=== PATIENT | female | born 1990 | race Caucasian/White ===

== ENCOUNTER 2019-10-15 17:13 | Emergency (ER) | payer BC ==
[~2019-10-15] VITALS: Ht 160 cm; Wt 69.9 kg
[2019-10-15 17:13] VITALS: BP_SYST 113
--- NOTE | 2019-10-15 17:13 | NUR ---
BIB w/c from OB, placed in bed 5
--- NOTE | 2019-10-15 17:18 | NUR ---
ER Dr. Concepcion at bedside examining patient.
--- NOTE | 2019-10-15 17:25 | NUR ---
patient bib spouse cc of right lower abdominal pain radiating to back. 8/10 scale sharp, pain started 3 pm. stated "I have hx of kidney stone".pt crying, spouse at the bedside.vital sign stable, afebrile. will monitor.
[2019-10-15] MEDS ORDERED: MORPHINE 4 MG/ML INJ. SYRINGE IVP ONE (17:30)
[2019-10-15] MEDS ORDERED: DIPHENHYDRAMINE INJ 50 MG/ML VIAL IVP ONE (17:30)
[2019-10-15 17:31] LABS: BILIRUBIN,URINE NEGATIVE (NEGATIVE); BLOOD, URINE 2+ (NEGATIVE); COLOR,URINE YELLOW (YELLOW); GLUCOSE,URINE NEGATIVE (NEGATIVE); KETONES,URINE TRACE (NEGATIVE); LEUKOCYTE ESTERASE ,URINE NEGATIVE (NEGATIVE); NITRITE, URINE NEGATIVE (NEGATIVE); PROTEIN URINE NEGATIVE (NEGATIVE); UROBILINOGEN,URINE 0.2 (0.2-1.0)
[2019-10-15 17:41] LABS: BACTERIA,URINE FEW /HPF (None Seen); CLARITY/URINE HAZY (CLEAR); RBC,URINE 0-3 /HPF (0-3); WBC,URINE 0-3 /HPF (0-3)
[2019-10-15 17:42] LABS: MUCUS,URINE None Seen /LPF (None Seen)
[2019-10-15 17:52] LABS: BASOPHILS # (AUTO) 0.1 K/uL (0.0-0.2); BASOPHILS % (AUTO) 0.7 % (0.0-2.0); EOSINOPHILS % (AUTO) 0.5 % (0.0-4.0); HEMATOCRIT 32.3 % (36-48); HEMOGLOBIN 11.3 g/dL (12.0-16.0); LYMPHOCYTES # (AUTO) 1.8 K/uL (1.0-5.5); LYMPHOCYTES % (AUTO) 20.6 % (20.5-51.5); MEAN CORPUSCULAR HEMOGLOBIN 31 pg (27-31); MEAN CORPUSCULAR HGB CONC 35 % (32-36); MEAN CORPUSCULAR VOLUME 88 fL (79.0-98.0); MONOCYTES # (AUTO) 0.5 K/uL (0.0-1.0); MONOCYTES % (AUTO) 6.4 % (1.7-9.3); NEUTROPHILS # (AUTO) 6.1 K/uL (1.8-7.7); NEUTROPHILS % (AUTO) 71.8 % (40.0-70.0); PLATELET COUNT (AUTO) 221 K/uL (130-430); RED BLOOD CELL COUNT(AUTO) 3.68 MIL/uL (4.2-6.2); RED CELL DISTRIBUTION WIDTH 13.8 % (9.0-15.0); WHITE BLOOD COUNT (AUTO) 8.6 K/uL (4.8-10.8)
[2019-10-15 18:00] LABS: CALCIUM 9.2 mg/dL (8.4-11.0); CREATININE 0.48 mg/dL (0.55-1.30); POTASSIUM 4.3 mmol/L (3.5-5.1)
[2019-10-15] MEDS ORDERED: ONDANSETRON HCL 4 MG/2 ML VIAL IVP ONE (18:00)
[2019-10-15 18:04] LABS: INR 0.9 (0.8-1.2); PROTHROMBIN TIME 9.3 SECS (9.5-12.5)
[2019-10-15 18:05] LABS: TOTAL BILIRUBIN 0.2 mg/dL (0.0-1.0)
[2019-10-15] MEDS ORDERED: KETOROLAC TROMETHAMINE 30 MG VIAL IVP ONE (18:45)
[2019-10-15 19:31] VITALS: BP_SYST 114
--- NOTE | 2019-10-15 19:31 | NUR ---
Patient given written and verbal discharge instructions and verbalizes understanding. ER MD discussed with patient the results and treatment provided. Patient in stable condition. ID arm band removed. IV catheter removed intact and dressing applied, no active bleeding. No rx given. Patient educated on pain management and to follow up with PMD. Pain Scale 0/10 Opportunity for questions provided and answered. Medication side effect fact sheet provided.
== END 2019-10-15 19:31 | disposition home or self-care (01) ==
LOC: SED 17:13
DX: O26.832 Pregnancy related renal disease, second trimester (principal); O99.282 Endocrine, nutritional and metabolic diseases complicating pregnancy, second trimester; E07.9 Disorder of thyroid, unspecified; N20.0 Calculus of kidney; Z3A.22 22 weeks gestation of pregnancy
CPT/HCPCS: 36415; 80053; 81000; 83605; 83690; 85025; 85610; 87040; 93005; 96374; 96375; 99284; J1200; J1885; J2270; J2405

== ENCOUNTER 2019-10-16 19:44 | Emergency (ER) | payer BC ==
[~2019-10-16] VITALS: Ht 160 cm; Wt 69.9 kg
[2019-10-16 20:00] VITALS: BP_SYST 109
--- NOTE | 2019-10-16 20:12 | NUR ---
Pt ambulatory to bed 1 for evaluation
--- NOTE | 2019-10-16 20:13 | NUR ---
Patient is ambulatory and complains of left side of flank pain since yesterday. Patient has been taking Tylenol the whole day and she started feeling more pain. Pt complains of N/V. Patient was seen here yesterday for same problem. No other injuries/complaints per patient or noted.
--- NOTE | 2019-10-16 20:15 | NUR ---
ER at bedside examining patient.
[2019-10-16] MEDS ORDERED: NACL 0.9% 1,000 ML IV ONE (20:21)
[2019-10-16] MEDS ORDERED: MORPHINE 2 MG/ML INJ. SYRINGE IVP ONE ×2 (20:30→22:00)
[2019-10-16] MEDS ORDERED: METOCLOPRAMIDE HCL 10 MG/2 ML VIAL IVP ONE (20:30)
[2019-10-16 20:51] LABS: BASOPHILS # (AUTO) 0.1 K/uL (0.0-0.2); BASOPHILS % (AUTO) 0.7 % (0.0-2.0); EOSINOPHILS # (AUTO) 0.1 K/uL (0.0-0.4); EOSINOPHILS % (AUTO) 0.8 % (0.0-4.0); HEMATOCRIT 30.6 % (36-48); HEMOGLOBIN 10.7 g/dL (12.0-16.0); LYMPHOCYTES # (AUTO) 1.8 K/uL (1.0-5.5); LYMPHOCYTES % (AUTO) 18.6 % (20.5-51.5); MEAN CORPUSCULAR HEMOGLOBIN 31 pg (27-31); MEAN CORPUSCULAR HGB CONC 35 % (32-36); MEAN CORPUSCULAR VOLUME 88 fL (79.0-98.0); MONOCYTES # (AUTO) 0.5 K/uL (0.0-1.0); MONOCYTES % (AUTO) 5.4 % (1.7-9.3); NEUTROPHILS % (AUTO) 74.5 % (40.0-70.0); PLATELET COUNT (AUTO) 230 K/uL (130-430); RED BLOOD CELL COUNT(AUTO) 3.47 MIL/uL (4.2-6.2); RED CELL DISTRIBUTION WIDTH 13.6 % (9.0-15.0); WHITE BLOOD COUNT (AUTO) 9.5 K/uL (4.8-10.8)
--- NOTE | 2019-10-16 20:58 | NUR ---
Asked Dr. Lyman about administering morphine and reglan to patient. Per Dr. Lyman, patient has been taking Tylenol all day and has no relief for abdominal pain. Per Dr. Lyman "reglan is okay to give during ." Dr. Lyman spoke with patient in regards to medications, pt verbalized understanding.
[2019-10-16 21:16] LABS: BILIRUBIN,URINE NEGATIVE (NEGATIVE); BLOOD, URINE 2+ (NEGATIVE); CLARITY/URINE CLEAR (CLEAR); COLOR,URINE YELLOW (YELLOW); GLUCOSE,URINE NEGATIVE (NEGATIVE); KETONES,URINE 2+ (NEGATIVE); LEUKOCYTE ESTERASE ,URINE NEGATIVE (NEGATIVE); NITRITE, URINE NEGATIVE (NEGATIVE); PROTEIN URINE NEGATIVE (NEGATIVE); UROBILINOGEN,URINE 0.2 (0.2-1.0)
[2019-10-16 21:21] LABS: PROTHROMBIN TIME 9.7 SECS (9.5-12.5)
[2019-10-16 21:23] LABS: CALCIUM 8.5 mg/dL (8.4-11.0); CREATININE 0.78 mg/dL (0.55-1.30); POTASSIUM 4.4 mmol/L (3.5-5.1)
[2019-10-16 21:50] LABS: ALBUMIN 2.9 g/dL (3.4-4.8); TOTAL BILIRUBIN 0.5 mg/dL (0.0-1.0)
--- NOTE | 2019-10-16 22:11 | NUR ---
Patient states " I feel like the fluids are putting pressure on my side and it hurts. Can we just stop it?" Dr. Lyman made aware.
[2019-10-16 22:20] LABS: BACTERIA,URINE FEW /HPF (None Seen); MUCUS,URINE 1+ /LPF (None Seen); WBC,URINE 0-3 /HPF (0-3)
[2019-10-17 00:09] VITALS: BP_SYST 116
--- NOTE | 2019-10-17 00:09 | NUR ---
Patient given written and verbal discharge instructions and verbalizes understanding. ER MD discussed with patient the results and treatment provided. Patient in stable condition. ID arm band removed. IV catheter removed intact and dressing applied, no active bleeding. Rx of [place] and Reglan given. Patient educated on pain management and to follow up with PMD. Pain Scale 0. Opportunity for questions provided and answered. Medication side effect fact sheet provided.
== END 2019-10-17 00:09 | disposition home or self-care (01) ==
LOC: SED 19:44
DX: O26.892 Other specified pregnancy related conditions, second trimester (principal); R10.9 Unspecified abdominal pain; R11.0 Nausea; Z3A.22 22 weeks gestation of pregnancy
CPT/HCPCS: 36415; 76700; 76805; 80053; 81000; 83690; 84702; 85025; 85610; 85730; 86900; 86901; 96374; 96375; 96376; 99284; J2270; J2765; J7030